=== PATIENT | male | born 1945 | race Caucasian/White ===

== ENCOUNTER 2019-06-12 10:39 | Inpatient (IN) | payer OTHER ==
[~2019-06-12] VITALS: Ht 180.3 cm; Wt 74.8 kg
[2019-07-01] MEDS ORDERED: COZAAR100 MG PO (15:01)
[2019-07-01] MEDS ORDERED: INTESTINEX680 M1 PO (15:03)
[2019-07-01] MEDS ORDERED: VYZULTA5 ML OTIC (15:03)
[2019-07-01] MEDS ORDERED: ACID CONTROL150 MG PO (15:03)
[2019-07-01] MEDS ORDERED: ARICEPT10 MG PO (15:03)
[2019-07-01] MEDS ORDERED: FIBER GUMMIES2 GM PO (15:03)
[2019-07-01] MEDS ORDERED: FOSAMAX70 MG PO (15:04)
[2019-07-07] MEDS ORDERED: TAMSULOSIN HCL0.4 MG PO (11:09)
[2019-07-07] MEDS ORDERED: ULTRACET PO (11:09)
[2019-07-07] MEDS ORDERED: HYOSCYAMINE0.125 M1 SL (11:09)
[2019-07-07] MEDS ORDERED: PROTONIX40 MG PO (11:10)
== END 2019-07-07 12:17 | disposition home or self-care (01) | DRG 331 ==
LOC: O/R 07-04 07:00 → SURG 07-04 07:00
PROVIDERS: ADMIT Surgery
PROC: 0DJD8ZZ Inspection of Lower Intestinal Tract, Via Natural or Artificial Opening Endoscopic (ICD-10-PCS; 2019-07-04)
PROC: 4A033R1 Measurement of Arterial Saturation, Peripheral, Percutaneous Approach (ICD-10-PCS; 2019-07-04)
PROC: 3E0F7GC Introduction of Other Therapeutic Substance into Respiratory Tract, Via Natural or Artificial Opening (ICD-10-PCS; 2019-07-04)
PROC: 4A12X4Z Monitoring of Cardiac Electrical Activity, External Approach (ICD-10-PCS; 2019-07-04)
PROC: 0DTN4ZZ Resection of Sigmoid Colon, Percutaneous Endoscopic Approach (ICD-10-PCS; principal; 2019-07-04 11:00)
DX: K57.32 Diverticulitis of large intestine without perforation or abscess without bleeding (principal); R10.32 Left lower quadrant pain; J30.89 Other allergic rhinitis; H40.89 Other specified glaucoma; J43.0 Unilateral pulmonary emphysema [MacLeod's syndrome]

== ENCOUNTER 2021-07-06 14:02 | Emergency (ER) | payer OTHER ==
[~2021-07-06] VITALS: Ht 177.8 cm; Wt 69.9 kg
[~2021-07-06 14:02] MED LIST: ACID CONTROL150 MG PO; ARICEPT10 MG PO; COZAAR100 MG PO; FIBER GUMMIES2 GM PO; FOSAMAX70 MG PO; HYOSCYAMINE0.125 M1 SL; INTESTINEX680 M1 PO; PROTONIX40 MG PO; TAMSULOSIN HCL0.4 MG PO; ULTRACET PO; VYZULTA5 ML OTIC
[2021-07-06] MEDS ORDERED: UCERIS9 MG PO (14:19)
[2021-07-06] MEDS ORDERED: PROAIR RESPICL90 MCG IH (14:19)
[2021-07-06] MEDS ORDERED: STIOLTO RESPIMAT4 GM (14:20)
== END 2021-07-06 20:04 | disposition home or self-care (01) ==
LOC: ER 14:02
DX: R10.2 Pelvic and perineal pain (principal); N23 Unspecified renal colic

== ENCOUNTER 2021-08-12 12:02 | Outpatient (CLI) | payer OTHER ==
[~2021-08-12 12:02] MED LIST changes: +PROAIR RESPICL90 MCG IH; +STIOLTO RESPIMAT4 GM; +UCERIS9 MG PO
== END 2021-08-12 12:14 | disposition home or self-care (01) ==
LOC: LAB 12:02
PROVIDERS: ATTEND Urology
DX: R39.89 Other symptoms and signs involving the genitourinary system (principal)

== ENCOUNTER 2021-08-19 15:34 | Outpatient (CLI) | payer OTHER ==
[2021-08-24] MEDS ORDERED: CRESTOR20 MG PO (09:00)
[2021-08-24] MEDS ORDERED: COZAAR50 MG PO (09:00)
[2021-08-24] MEDS ORDERED: MAGNESIUM200 MG PO (09:02)
[2021-08-24] MEDS ORDERED: PANTOPRAZOLE SO40 M2 PO (09:02)
[2021-08-24] MEDS ORDERED: VITAMIN B (09:03)
== END 2021-08-19 15:35 | disposition home or self-care (01) ==
LOC: LAB 15:34
PROVIDERS: ATTEND Urology
DX: I11.0 Hypertensive heart disease with heart failure (principal)

== ENCOUNTER 2021-08-25 05:38 | Day surgery (SDC) | payer OTHER ==
[~2021-08-25 05:38] MED LIST changes: +COZAAR50 MG PO; +CRESTOR20 MG PO; +MAGNESIUM200 MG PO; +PANTOPRAZOLE SO40 M2 PO; +VITAMIN B
== END 2021-08-25 18:20 | disposition home or self-care (01) ==
LOC: CIR.AMB 05:38
PROVIDERS: ATTEND Urology
DX: D09.0 Carcinoma in situ of bladder (principal); Z20.822 Contact with and (suspected) exposure to COVID-19

== ENCOUNTER 2022-04-02 11:54 | Emergency (ER) | payer OTHER ==
[~2022-04-02] VITALS: Ht 177.8 cm; Wt 68.0 kg
[2022-04-02] MEDS ORDERED: TAMS0.4C PO (12:19)
[2022-04-02] MEDS ORDERED: [UNRECOGNIZED DRUG - OTHER] IS (12:21)
== END 2022-04-02 16:23 | disposition home or self-care (01) ==
LOC: ER 11:54
DX: M16.12 Unilateral primary osteoarthritis, left hip (principal)

== ENCOUNTER 2023-07-10 08:40 | Outpatient (CLI) | payer OTHER ==
[~2023-07-10 08:40] MED LIST changes: +TAMS0.4C PO; +[UNRECOGNIZED DRUG - OTHER] IS
== END 2023-07-10 08:59 | disposition home or self-care (01) ==
LOC: TOM 08:40
PROVIDERS: ATTEND Urology
DX: N40.1 Benign prostatic hyperplasia with lower urinary tract symptoms (principal); C67.9 Malignant neoplasm of bladder, unspecified